=== PATIENT | male | born 1960 ===

== ENCOUNTER → 2023-07-16 15:33 | Outpatient (REF) | payer MEDICARE, BC, SELFPAY | LOC: PAVMRI 15:33 | PROVIDERS: ATTENDING PHYSICIAN Physician Assistant Surgical; FAMILY PHYSICIAN Registered Nurse; REFERRING PHYSICIAN Specialist | DX: M25.562 Pain in left knee (principal); M23.91 Unspecified internal derangement of right knee | CPT/HCPCS: 73721 ==